=== PATIENT | female | born 1980 | race Caucasian/White ===

== ENCOUNTER 2023-10-29 07:38 | Day surgery (SDC) | payer OTHER | END 2024-02-09 22:45 | disposition home or self-care (01) | LOC: MOI US 07:38 | DX: C50.911 Malignant neoplasm of unspecified site of right female breast (principal); N64.53 Retraction of nipple | CPT/HCPCS: 19083; 38505; 76942; 77065; 88305; 88342; 88360; A4648; G0279 ==

== ENCOUNTER 2023-11-22 08:43 | Day surgery (SDC) | payer OTHER | END 2023-11-22 23:59 | disposition home or self-care (01) | LOC: MOI US 08:43 | DX: C50.011 Malignant neoplasm of nipple and areola, right female breast (principal); C77.3 Secondary and unspecified malignant neoplasm of axilla and upper limb lymph nodes; Z17.0 Estrogen receptor positive status [ER+] | CPT/HCPCS: 19285; 38505; A4648 ==